=== PATIENT | female | born 2000 | race Caucasian/White ===

== ENCOUNTER 2021-11-12 16:47 | Emergency (ER) | payer OTHER ==
[~2021-11-12] VITALS: Ht 167.6 cm; Wt 95.3 kg
[2021-11-12] MEDS ORDERED: AUGMENTIN 875-1 EACH PO (17:42)
[2021-11-12 18:08] VITALS: BP 140/72
== END 2021-11-12 18:08 | disposition home or self-care (01) ==
LOC: ER 16:47
PROVIDERS: Emergency Medicine
DX: J32.9 Chronic sinusitis, unspecified (principal); Z20.822 Contact with and (suspected) exposure to COVID-19; F90.9 Attention-deficit hyperactivity disorder, unspecified type; F17.210 Nicotine dependence, cigarettes, uncomplicated